=== PATIENT | female | born 1945 | race Two or more races ===

== ENCOUNTER 2020-01-13 08:15 | Outpatient (CLI) | payer OTHER | END 2020-01-13 08:16 | disposition home or self-care (01) | LOC: SONOGRAMA 08:15 | DX: E04.1 Nontoxic single thyroid nodule (principal) ==

== ENCOUNTER 2025-04-12 13:49 | Emergency (ER) | payer OTHER ==
[~2025-04-12] VITALS: Ht 157.5 cm; Wt 66.7 kg
[2025-04-12] MEDS ORDERED: LEVOTHYROXINE25 MCG (14:38)
[2025-04-12] MEDS ORDERED: NASAL MIST126 ML (14:38)
[2025-04-12] MEDS ORDERED: LIPITOR40 M1 (14:39)
[2025-04-12] MEDS ORDERED: KETOROLAC TROMETHAMINE 30 MG VIAL IM STA (16:51)
[2025-04-12] MEDS ORDERED: KETOROLAC TROMETHAMINE 30 MG VIAL ONE (16:52)
[2025-04-12] MEDS ORDERED: DICLOFENAC POTA50 MG PO (21:59)
== END 2025-04-12 22:03 | disposition home or self-care (01) ==
LOC: ER 14:32
DX: S09.8XXA Other specified injuries of head, initial encounter (principal); W19.XXXA Unspecified fall, initial encounter; Y93.89 Activity, other specified; Y92.098 Other place in other non-institutional residence as the place of occurrence of the external cause; Y99.8 Other external cause status; R51.9 Headache, unspecified
CPT/HCPCS: 70450; 72100; 73521; 96372; 99284; J1885